=== PATIENT | female | born 1955 | race Caucasian/White ===

== ENCOUNTER 2017-04-23 06:20 | Emergency (ER) | END 2017-04-23 10:35 | disposition home or self-care (01) ==

== ENCOUNTER 2018-04-06 12:43 | Emergency (ER) | payer OTHER ==
[~2018-04-06] VITALS: Wt 69.7 kg
[~2018-04-06 12:43] MED LIST: ACET500C5 PO; GUAI5SYR2 PO; IBUP-1542 PO; ONDA4TAB8 PO; OSEL75CA23 PO
[2018-04-06] MEDS ORDERED: SOD CHLORIDE 0.9% 1,000 ML IV STA (16:21)
[2018-04-06] MEDS ORDERED: morphine 2 MG INJ IV STA (16:21)
--- NOTE | 2018-04-06 18:35 | ERD ---
ER Documentation Chief Complaint Chief Complaint MD ref: eval for renal colic. HPI Patient is a 63-year-old female with a past medical history of diabetes, insulin-dependent, hypertension, hyperlipidemia presents the ER for concerns of worsening left sided flank pain. Patient was referred to the ER by her primary care physician Dr. Kalin Velazco. Patient reports worsening right-sided flank pain times 1 week. Patient states the pain is constant and sharp. She currently rates her pain to be an 8 out of 10. Patient states she has been taking Tylenol which intermittently relief of her pain. Patient denies any nausea, vomiting, fevers, chills, dysuria, hematuria or vaginal discharge. Patient had renal ultrasound done in December 2017 which showed mild left-sided hydronephrosis, 1.7 nonobstructing left lower pole intra-renal calculus. Patient also does have a urology appointment pending with Dr. Braga. ROS All systems reviewed and are negative except as per history of present illness. Medications Home Meds Active Scripts Ibuprofen* (Motrin*) 600 Mg Tab, 600 MG PO Q6, #30 TAB Prov:DIONI SHANKS PA-C 04/06/18 Guaifenesin-Dextromethorphan* (Robitussin* DM) 100MG/10MG/5ML Syrup, 10 ML PO Q6H PRN for COUGH for 5 Days, ML Prov:BRUCE ALEMANC 04/23/17 Ondansetron Hcl* (Zofran*) 4 Mg Tablet, 4 MG PO Q6H for NAUSEA AND/OR VOMITING, #30 TAB Prov:BRUCE ALEMANC 04/23/17 Acetaminophen* (Tylophen*) 500 Mg Capsule, 1 CAP PO Q6H PRN for PAIN AND OR ELEVATED TEMP, #30 CAP Prov:BRUCE ALEMANC 04/23/17 Ibuprofen* (Motrin*) 600 Mg Tab, 600 MG PO Q6, #30 TAB Prov:BRUCE ALEMANC 04/23/17 Oseltamivir Phosphate* (Tamiflu*) 75 Mg Capsule, 75 MG PO BID for 5 Days, CAP Prov:BRUCE ALEMANC 04/23/17 Allergies Allergies: Coded Allergies: No Known Drug Allergies (Verified Allergy, Unknown, 2/21/19) PMhx/Soc History of Surgery: Yes (APPENDECTOMY,CHOLECYSTECTOMY) Anesthesia Reaction: No Hx Neurological Disorder: No Hx Cardiac Disorders: Yes (HTN,HYPERCHOLESTEROL) Hx Psychiatric Problems: No Hx Miscellaneous Medical Probl: Yes (DM) Hx Alcohol Use: No Hx Substance Use: No Hx Tobacco Use: No Smoking Status: Never smoker FmHx Family History: diabetes Physical Exam Vitals Vital Signs Date Temp Pulse Resp B/P (MAP) Pulse Ox O2 O2 Flow FiO2 Time Delivery Rate 04/06/18 98.5 66 20 147/70 95 Room Air 21:25 (95) 04/06/18 97.7 67 16 131/62 97 Room Air 20:15 (85) 04/06/18 99.2 85 16 132/77 98 13:36 (95) Physical Exam GENERAL: Well-developed, well-nourished female. Appears in no acute distress. HEAD: Normocephalic, atraumatic. EYES: Pupils are equally reactive bilaterally. EOMs grossly intact. No conjunctival erythema. ENT: Moist mucous membranes. No uvula deviation. No kissing tonsils. NECK: Supple. No meningismus. Normal range of motion of the neck. LUNG: Clear to auscultation bilaterally. No rhonchi, wheezing, rales or coarse breath sounds. HEART: Regular rate and rhythm. No murmurs, rubs or gallops. ABDOMEN. No pulsatile masses. Soft, nontender, and nondistended. Positive bowel sounds in all four quadrants. No rebound tenderness, no guarding. (-) McBurney's point tenderness. L sided CVA tenderness. EXTREMITIES: Equal pulses bilaterally. No peripheral clubbing, cyanosis or edema. No unilateral leg swelling. NEUROLOGIC: Alert and oriented. Moving all four extremities without any difficulty. Normal speech. Steady gait. SKIN: Normal color. Warm and dry. No rashes or lesions. Result Diagram: 04/06/18 1635 04/06/18 1635 Results 24 hrs Laboratory Tests Test 04/06/18 16:30 04/06/18 16:35 04/06/18 20:00 04/06/18 20:05 Urine Color YELLOW YELLOW Urine Clarity CLOUDY CLEAR Urine pH 7.0 7.0 Urine Specific 1.014 1.012 Supai Urine Ketones NEGATIVE mg/dL NEGATIVE mg/dL Urine Nitrite NEGATIVE mg/dL NEGATIVE mg/dL Urine Bilirubin NEGATIVE mg/dL NEGATIVE mg/dL Urine NEGATIVE mg/dL NEGATIVE mg/dL Urobilinogen Urine Leukocyte NEGATIVE Ericka/ul NEGATIVE Ericka/ul Esterase Urine 0 /HPF Microscopic RBC Urine 5 /HPF Microscopic WBC Urine Squamous MODERATE /HPF Epithelial Cell s Urine Amorphous MODERATE /HPF Crystals Urine Bacteria FEW /HPF Urine NEGATIVE mg/dL NEGATIVE mg/dL Hemoglobin Urine Glucose NEGATIVE mg/dL NEGATIVE mg/dL Urine Total NEGATIVE mg/dl NEGATIVE mg/dl Protein White Blood 7.8 10^3/ul Count Red Blood Count 4.88 10^6/ul Hemoglobin 13.8 g/dl Hematocrit 41.9 % Mean 85.9 fl Corpuscular Volume Mean 28.3 pg Corpuscular Hemoglobin Mean 32.9 g/dl Corpuscular Hemoglobin Conc ent Red Cell 12.2 % Distribution Width Platelet Count 341 10^3/UL Mean Platelet 9.7 fl Volume Immature 0.400 % Granulocytes % Neutrophils % 42.0 % Lymphocytes % 48.3 % Monocytes % 7.1 % Eosinophils % 1.7 % Basophils % 0.5 % Nucleated Red 0.0 /100WBC Blood Cells % Immature 0.030 10^3/ul Granulocytes # Neutrophils # 3.3 10^3/ul Lymphocytes # 3.8 10^3/ul Monocytes # 0.6 10^3/ul Eosinophils # 0.1 10^3/ul Basophils # 0.0 10^3/ul Nucleated Red 0.0 10^3/ul Blood Cells # Sodium Level 140 mmol/L Potassium Level 4.1 mmol/L Chloride Level 100 mmol/L Carbon Dioxide 33 mmol/L Level Anion Gap 7 Blood Urea 13 mg/dl Nitrogen Creatinine 0.55 mg/dl Est Glomerular > 60 mL/min Filtrat Rate mL/min Glucose Level 90 mg/dl Calcium Level 10.6 mg/dl Total Bilirubin 0.2 mg/dl Direct 0.00 mg/dl Bilirubin Indirect 0.2 mg/dl Bilirubin Aspartate Amino 47 IU/L Transf (AST/SGO T) Alanine 38 IU/L Aminotransferas e (ALT/SGPT) Alkaline 72 IU/L Phosphatase Total Protein 8.2 g/dl Albumin 4.8 g/dl Globulin 3.40 g/dl Albumin/Globuli 1.41 n Ratio Lipase 116 U/L Bedside Urine 7.0 pH (LAB) Bedside Urine Negative Protein (LAB) Bedside Urine Negative Glucose (UA) Bedside Urine Negative Ketones (LAB) Bedside Urine Negative Blood Bedside Urine Negative Nitrite (LAB) Bedside Urine Negative Leukocyte Calista ase (L Current Medications Medications Dose Sig/Bharati Start Time Status Last (Trade) Ordered Route PRN Stop Time Admin Dose Reason Admin Sodium 1,000 ml @ Q1H STAT 04/06/18 DC 04/06/18 Chloride 1,000 mls/hr IV 16:21 16:41 04/06/18 17:20 Morphine 2 mg ONCE STAT 04/06/18 DC 04/06/18 Sulfate IV 16: 16:41 (morphine) 04/06/18 16:22 Procedures/MDM ED COURSE: The patient was stable throughout ED course. I kept the patient and/or family informed of laboratory and diagnostic imaging results throughout the ED course. DIAGNOSTIC IMAGING: Read by radiologist. Patient Name Nellei Lopes Study Date 04/06/2018 5:13 PM Patient 1955 Accession No. [id number] Referring Physician Dioni Shanks Pa-C Patient Location FTE PROCEDURE: CT Abdomen and Pelvis Without Intravenous Contrast CLINICAL INDICATION: Left flank pain. TECHNIQUE: Axial computed tomography images of the abdomen and pelvis without intravenous contrast. Sagittal and coronal reformatted images were created and reviewed. CTDIvol (mGy) = 14.14; total DLP (mGy-cm) = 147.51. This CT exam was performed using one or more of the following dose reduction techniques: automated exposu re control, adjustment of the mA and/or kV according to patient size, and/or use of iterative reconstruction technique. DICOM images are available. COMPARISON: None FINDINGS: LUNG BASES: Unremarkable. No mass. No consolidation. ABDOMEN: LIVER: The liver demonstrates decreased attenuation, consistent with hepatic steatosis. GALLBLADDER AND BILE DUCTS: The gallbladder is surgically absent. No biliary dilatation. PANCREAS: Unremarkable. No ductal dilation. SPLEEN: Unremarkable. No splenomegaly. ADRENALS: Unremarkable. No mass. KIDNEYS AND URETERS: There are 2 adjacent 5 mm nonobstructing calculus, lower pole left kidney. No right renal calculi. No hydronephrosis. The ureters are not dilated. No ureteral calculi. No obstructive uropathy. STOMACH AND BOWEL: Unremarkable. No obstruction. No mucosal thickening. PELVIS: APPENDIX: No findings to suggest acute appendicitis. BLADDER: Unremarkable. No stones. REPRODUCTIVE: Unremarkable as visualized. ABDOMEN and PELVIS: INTRAPERITONEAL SPACE: Unremarkable. No free air. No significant fluid collection. BONES/JOINTS: Degenerative spine changes are noted. No acute fracture. No dislocation. SOFT TISSUES: Small bilateral inguinal hernias noted, containing only fat. VASCULATURE: Unremarkable. LYMPH NODES: Unremarkable. No enlarged lymph nodes. IMPRESSION: 1. There are 2 adjacent 5 mm nonobstructing calculus, lower pole left kidney. No right renal calculi. No hydronephrosis. The ureters are not dilated. No ureteral calculi. No obstructive uropathy. 2. The liver demonstrates decreased attenuation, consistent with hepatic steatosis. 3. No acute abnormality demonstrated in the abdomen and pelvis. RPTAT: [facility] Electronically Signed By: Chester Kaiser M.d 04/06/2018 5:44:26 PM PROCEDURES: None. MEDICATIONS GIVEN: IV fluids, Morphine Patient tolerated medication well with no adverse reactions. Patient reported improvement in pain. MEDICAL DECISION MAKING: This is a 63-year-old female with a past medical history of DM type II, hypertension, hyperlipidemia, renal colic, presents ER for concerns of worsening left-sided flank pain. December 2017, patient was noted to have a 1.7 nonobstructing left lower pole intrarenal calculus. Patient was referred to the ER by her primary care physician Dr. Kalin Velazco for further workup and management of her pain. Vital signs were reviewed. Patient was afebrile. On exam, patient did have left-sided CVA tenderness. IV line was established. Blood work was obtained. CBC showed no evidence of systemic infection or anemia. CMP showed no severe electrolyte abnormalities, acidosis, alkalosis, renal injury. Mild elevation of liver enzymes noted. Lipase are within normal limits. No evidence of acute pancreatitis. Initial UA did show a contaminated specimen as moderate squamous epithelial cells were noted. CT imaging showed 1. There are 2 adjacent 5 mm nonobstructing calculus, lower pole left kidney. No right renal calculi. No hydronephrosis. The ureters are not dilated. No ureteral calculi. No obstructive uropathy. 2. The liver demonstrates decreased attenuation, consistent with hepatic steatosis. 3. No acute abnormality demonstrated in the abdomen and pelvis. Discussed case with supervising physician Dr. Powers, who advised me to contact patient's referring physician Dr. Kalin Velazco. I spoke with Dr. Velazco who advised me to contact Dr. Braga to see if pt required admission. Dr. Braga was thus consulted. Case was discussed. Dr. Braga reviewed that patient's imaging studies and agreed that patient was stable for outpatient management. Repeat UA via catheterized specimen was obtained per Dr. Braga's requests. UA was negative for leukocytes, nitrites or blood. Urine was sent for culture per requests. At this time, patient presentation is most consistent with nephrolithiasis and renal colic. Patient will be given prescription for pain medication for home. Patient advised to follow-up with Dr. Braga an outpatient basis. Referral was provided. Low suspicion for hydronephrosis, renal injury/failure, pyelonephritis, UTI, appendicitis, urosepsis, diverticulitis or obstructive uropathy. Patient was nontoxic, [id number]. Discharge. PRESCRIPTIONS: Ibuprofen DISCHARGE: At this time, patient is stable for discharge and outpatient management. I have instructed the patient to follow-up with his/her primary care physician in 1-2 days. If symptoms persist, patient may need to see a specialist for further examinations and testing. I have instructed the patient to promptly return to the ER at any time for any new or worsening symptoms including increased increased pain, fever, nausea, vomiting, urinary changes or weakness. The patien t and/or family expressed understanding of and agreement with this plan. All questions were answered. Home care instructions were provided. Disclaimer: Inadvertent spelling and grammatical errors are likely due to EHR/dictation software use and do not reflect on the overall quality of patient care. Also, please note that the electronic time recorded on this note does not necessarily reflect the actual time of the patient encounter. Departure Diagnosis: Primary Impression: Renal colic on left side Additional Impressions: Nephrolithiasis Hepatic steatosis Condition: Stable Referrals: LAITH BRAGA MD Additional Instructions: Follow-up with your primary care physician in the next 1-2 days. Return to the ER for any new or worsening symptoms. Follow-up with . See referral information. DIONI SHANKS PA-C Apr 06, 2018 18:35
[2018-04-06] MEDS ORDERED: IBUP-1542 PO (19:54)
[2018-04-06 21:25] VITALS: BP 147/70; PULSE 66; RESP 20
== END 2018-04-06 21:26 | disposition home or self-care (01) ==
LOC: FTE 12:43
DX: N20.0 Calculus of kidney (principal); K76.0 Fatty (change of) liver, not elsewhere classified; I10 Essential (primary) hypertension; E11.9 Type 2 diabetes mellitus without complications; Z79.4 Long term (current) use of insulin
CPT/HCPCS: 36415; 74176; 80053; 81001; 81003; 83690; 85025; 87086; 96361; 96374; 99285; A4310; J2270; J7030; P9612

== ENCOUNTER 2018-08-06 06:27 | Emergency (ER) | payer OTHER ==
[~2018-08-06] VITALS: Ht 149.9 cm; Wt 70.5 kg
[2018-08-06 06:29] VITALS: BP 161/74; PULSE 82; RESP 18; Ht 149.9 cm; Wt 70.5 kg
[2018-08-06] MEDS ORDERED: PROMETHAZINE/DM (CUP) PO ONE (07:00)
[2018-08-06] MEDS ORDERED: HYDROCODONE/APAP (5/325) TAB PO ONE (07:00)
--- NOTE | 2018-08-06 07:42 | ERD ---
ER Documentation Chief Complaint Chief Complaint Intermittent head pain and fever x 6 days HPI 63-year-old female presents with complaint of subjective fevers, body aches, cough, and intermittent headaches for the past 6 days. Denies sudden onset, worse headache of life, fever, neck stiffness, rash, headache getting worse with change in position, headache initiated by exertion, CLEARY worse in the morning, CLEARY waking up patient at night, new neurological deficits, numbness, weakness, vision problems, tenderness to palpation over temporal area, history of trauma, or possibility of CO2 poisoning. She also denies wheezing, stridor, respiratory distress, hemoptysis, chest pain. Denies past medical history. Denies allergies. Denies surgeries. Steve alcohol, tobacco, drug use. Up to date on vaccines. ROS All systems reviewed and are negative except as per history of present illness. Medications Home Meds Active Scripts Acetaminophen* (Tylophen*) 500 Mg Capsule, 2 CAP PO Q8H PRN for PAIN AND OR ELEVATED TEMP, #20 CAP Prov:VICKI MCLEOD 08/06/18 Promethazine HCl/Codeine (Prometh-Codein 6.25-10 mg/5 ml) 5 Ml Syrup, 5 ML PO Q6 , #4 OZ Prov:VICKI MCLEOD 08/06/18 Ibuprofen* (Motrin*) 600 Mg Tab, 600 MG PO Q6, #30 TAB Prov:DIONI SORIA PA-C 04/06/18 Guaifenesin-Dextromethorphan* (Robitussin* DM) 100MG/10MG/5ML Syrup, 10 ML PO Q6H PRN for COUGH for 5 Days, ML Prov:BRUCE ALEMAN PA-C 04/23/17 Ondansetron Hcl* (Zofran*) 4 Mg Tablet, 4 MG PO Q6H for NAUSEA AND/OR VOMITING, #30 TAB Prov:BRUCE ALEMAN PA-C 04/23/17 Acetaminophen* (Tylophen*) 500 Mg Capsule, 1 CAP PO Q6H PRN for PAIN AND OR ELEVATED TEMP, #30 CAP Prov:BRUCE ALEMAN PA-C 04/23/17 Ibuprofen* (Motrin*) 600 Mg Tab, 600 MG PO Q6, #30 TAB Prov:BRUCE ALEMAN PA-C 04/23/17 Oseltamivir Phosphate* (Tamiflu*) 75 Mg Capsule, 75 MG PO BID for 5 Days, CAP Prov:ASHBRUCE Singer PA-C 04/23/17 Allergies Allergies: Coded Allergies: No Known Drug Allergies (Verified Allergy, Unknown, 04/06/18) PMhx/Soc History of Surgery: Yes (APPENDECTOMY,CHOLECYSTECTOMY) Anesthesia Reaction: No Hx Neurological Disorder: No Hx Cardiac Disorders: Yes (HTN,HYPERCHOLESTEROL) Hx Psychiatric Problems: No Hx Miscellaneous Medical Probl: Yes (DM) Hx Alcohol Use: No Hx Substance Use: No Hx Tobacco Use: No Smoking Status: Never smoker FmHx Family History: No diabetes, No coronary disease, No other Physical Exam Vitals Vital Signs Date Temp Pulse Resp B/P (MAP) Pulse Ox O2 O2 Flow FiO2 Time Delivery Rate 08/06/18 98.5 82 18 161/74 96 06:29 (103) Physical Exam Const: No acute distress Head: Atraumatic Eyes: Normal Conjunctiva ENT: Normal External Ears, Nose and Mouth. Neck: Full range of motion. No meningismus. Resp: Clear to auscultation bilaterally Cardio: Regular rate and rhythm, no murmurs Abd: Soft, non tender, non distended. Normal bowel sounds Skin: No petechiae or rashes Back: No midline or flank tenderness Ext: No cyanosis, or edema Neur: Awake and alert Psych: Normal Mood and Affect Neuro: M/S: Alert and oriented Face: EOMI, face and pharynx with normal sensation and function Motor: Normal strength throughout Sensation: Normal sensation throughout Speech: Normal Cerebel: Normal coordination Normal gait Normal finger to nose DTR: 2+ and symmetric upper/lower extremities Results 24 hrs Current Medications Medications Dose Sig/Bharati Start Time Status Last (Trade) Ordered Route PRN Stop Time Admin Dose Reason Admin 1 tab ONCE ONCE 08/06/18 DC 08/06/18 Acetaminophen PO 07:00 07:00 / 08/06/18 07:01 Hydrocodone Bitart ([place] (5/325)) Promethazine 5 ml ONCE ONCE 08/06/18 DC 08/06/18 HCl/ PO 07:00 07:00 Dextromethorp 08/06/18 07:01 bailey (Phenergan-Dm ) Procedures/MDM DIAGNOSTIC IMAGING REPORT Patient: VANITA ISRAEL : 1955 Age: 63 Sex: F MR #: [id number] DOS: 08/06/18 0645 Ordering MD: VICKI MCLEOD Location: [facility] Room/Bed: PROCEDURE: XR Chest. CLINICAL INDICATION: Cough, fever TECHNIQUE: Single frontal chest x-ray. COMPARISON: CT 04/06/2018 FINDINGS: Nonspecific elevation of the right hemidiaphragm, unchanged from prior. No acute infiltrate, pleural effusion or pneumothorax. Cardiomediastinal silhouette is within normal limits. The osseous structures are remarkable for degenerative enthesopathy of the spine. IMPRESSION: 1. No evidence of acute cardiopulmonary process. 2. There is nonspecific elevation of the right hemidiaphragm, unchanged from prior CT. RPTAT: PP .Kaiden Jules MD, MD Date Time Electronically viewed and signed by .Kaiden Juels MD, on 08/06/2018 08:34 .R/ CC: VICKI MCLEOD [id number] MDM: Chest x-ray performed and results within normal limits. Regarding patient's headache, appears to be associated with her viral syndrome was neuro exam was within normal limits and there are no red flags. I have low suspicion for intracranial hemorrhage, elevated intracranial pressure, intracranial mass, aneurysm, meningitis, malignant hypertension, giant cell arteritis, carotid dissection, intracranial abscess, cerebral venous thrombosis, CO2 poisoning, or other emergent causes of headache based on patients history and exam. I have low suspicion for strep throat based on history and exam findings, as well as patient not meeting centor criteria for rapid strep testing. I have low suspicion for bacterial sinusitis, pneumonia, tuberculosis, meningitis, pneumothorax, PE, aspirated foreign body, respiratory distress, acute heart failure or other life threatening etiology based on patient history and exam findings. Most likely etiology is viral URI and no further tests are necessary. Patient given rx for medicine with codeine as well as acetaminophen. Patient advised to rest and stay well hydrated. At this time, patient is stable for discharge and outpatient management. I have instructed the patient to follow-up with his/her primary care physician in 1-2 days. I have discussed with the patient the possibility of needing to see a specialist for further workup and imaging studies if symptoms persist. I have instructed the patient to promptly return to the ER for any new or worsening symptoms including but not limited to increased pain, fever, nausea, vomiting, weakness or LOC. The patient and/or family expressed understanding of and agreement with this plan. All questions were answered. Home care instructions were provided. DISCLAIMER: Inadvertent spelling and grammatical errors are likely due to EHR/dictation software use and do not reflect on the overall quality of patient care. Also, please note that the electronic time recorded on this note does not necessarily reflect the actual time of the patient encounter. Departure Diagnosis: Primary Impression: URI (upper respiratory infection) Condition: Stable SYLVESTERVICKI HARTMAN Aug 06, 2018 07:42
[2018-08-06] MEDS ORDERED: ACET500C5 PO (07:43)
[2018-08-06] MEDS ORDERED: PROM5SYR2 PO (07:43)
== END 2018-08-06 08:52 | disposition home or self-care (01) ==
LOC: FTE 06:27
DX: J06.9 Acute upper respiratory infection, unspecified (principal); I10 Essential (primary) hypertension; E11.9 Type 2 diabetes mellitus without complications
CPT/HCPCS: 71045; Z7610